=== PATIENT | male | born 1965 | race Caucasian/White ===

== ENCOUNTER 2020-04-30 14:29 | Emergency (ER) | payer BC ==
--- NOTE | 2020-04-30 15:01 | EDM.PDOC ---
ED HPI GENERAL MEDICAL PROBLEM - General Chief Complaint: Skin Complaint Stated Complaint: WOOD TICK BITE/? LYMES DISEASE Time Seen by Provider: 04/30/20 14:58 Source of Information: Reports: Patient History Limitations: Reports: No Limitations - History of Present Illness INITIAL COMMENTS - FREE TEXT/NARRATIVE: Patient comes emergency department today with complaints of concerns of Lyme's disease from a tick bite. 6 days ago the patient removed a tick that was embedded into his skin on the right posterior distal thigh. Today when he looked at it there was some swelling around it and his family thought it was Lyme's disease. He has had no fever no chills. No headache no visual disturbances. No paresthesias. No neck pain. No chest pain or shortness of breath or difficulty breathing. Really asymptomatic otherwise. He is outside working in the [employer] all the time and has ticks on him regularly. He denies any arthralgias myalgias or paresthesias. He denies any other rash. - Related Data Allergies Allergy/AdvReac Type Severity Reaction Status Date / Time bee venom protein (honey bee) Allergy Anaphylactic Verified 04/30/20 14:47 Shock Home Meds: Home Meds Rivaroxaban [Xarelto] 20 mg PO DAILY 04/30/20 [History] Past Medical History Cardiovascular History: Reports: Blood Clots/VTE/DVT, Other (See Below) Respiratory History: Reports: PE Endocrine/Metabolic History: Reports: Obesity/BMI 30+ - Past Surgical History HEENT Surgical History: Reports: Adenoidectomy, Tonsillectomy Musculoskeletal Surgical History: Reports: Arthroscopic Knee Social & Family History - Tobacco Use Smoking Status *Q: Never Smoker Second Hand Smoke Exposure: No - Caffeine Use Caffeine Use: Reports: None - Recreational Drug Use Recreational Drug Use: No ED ROS GENERAL - Review of Systems Review Of Systems: Comprehensive ROS is negative, except as noted in HPI. ED EXAM, SKIN/RASH Exam: See Below Text/Narrative:: Actually while doing the patient's physical exam I found 2 other tics that were crawling on his buttocks. These were discarded they were not implanted. Exam Limited By: No Limitations General Appearance: Alert, WD/WN, No Apparent Distress Ears: Normal External Exam Nose: Normal Inspection Throat/Mouth: Normal Inspection, Normal Lips, Normal Teeth, Normal Voice Head: Atraumatic, Normocephalic Neck: Normal Inspection, Supple, Non-Tender, Full Range of Motion Respiratory/Chest: No Respiratory Distress, Lungs Clear, Normal Breath Sounds, No Accessory Muscle Use, Chest Non-Tender Cardiovascular: Normal Peripheral Pulses, Regular Rate, Rhythm, No Edema, No Gallop, No JVD, No Murmur, No Rub GI/Abdominal: Normal Bowel Sounds, Soft, Non-Tender (Male) Exam: Deferred Rectal (Males) Exam: Deferred Back Exam: Normal Inspection, Full Range of Motion, NT Extremities: Normal Inspection, Normal Range of Motion, Non-Tender, No Pedal Edema, Normal Capillary Refill Neurological: Alert, Oriented, CN II-XII Intact, Normal Cognition Psychiatric: Normal Affect, Normal Mood Skin: Warm, Dry, Intact, Normal Color Location, Skin: Other (A very thorough head to toe skin exam was completed by myself. I did not find any target bull's-eye lesions consistent with traditional Lyme's disease presentation. I even look throughout the hair. On the right posterior distal lateral aspect of the thigh there is about a $0.50 piece area of erythema with a central ulceration. This erythema is minimally swollen and tender. Small amount of warmth. There is no exudate or discharge. Central crusting in the central region of this.) Lymphatic: No Adenopathy Course - Vital Signs Last Recorded V/S: Last Vital Signs Temp 98.3 F 04/30/20 14:44 Pulse 91 04/30/20 14:44 Resp 20 04/30/20 14:44 BP 147/66 H 04/30/20 14:44 Pulse Ox 96 04/30/20 14:44 - Re-Assessments/Exams Free Text/Narrative Re-Assessment/Exam: 04/30/20 15:13 Start him on Keflex due to the concerns for an infection at the isolated tick bite on the right posterior of his leg. I will also draw some blood to make sure that screen him for Lyme's disease is almost been a week so if it is positive we should get a good reading. We will do some screening labs he is comfortable with this plan his questions are answered. Departure - Departure Time of Disposition: 15:06 Disposition: Home, Self-Care 01 Clinical Impression: Insect bite, infected Qualifiers: Encounter type: initial encounter Qualified Code(s): W57.XXXA - Bitten or stung by nonvenomous insect and other nonvenomous arthropods, initial encounter - Discharge Information Instructions: Insect Bite, Adult, [id number] Forms: ED Department Discharge Additional Instructions: Tylenol as needed for pain. We will let you know your Lymes test when it gets back in about a week. Cephalexin 1 capsule 4 times a day for the next 7 days. RX given to the patient. Warm packs to the area. Return to the ED if new or worsening symptoms. Sepsis Event Note (ED) - Evaluation Sepsis Screening Result: No Definite Risk - Focused Exam Vital Signs: Vital Signs Temp Pulse Resp BP Pulse Ox 04/30/20 14:44 98.3 F 91 20 147/66 H 96 - Assessment/Plan Assessment:: Infected tick bite to the right posterior distal thigh. Screening for lymes. No typical rash identified. no systemic complaints. Plan: Tylenol as needed for pain. We will let you know your Lymes test when it gets back in about a week. Cephalexin 1 capsule 4 times a day for the next 7 days. RX given to the patient. Warm packs to the area. Return to the ED if new or worsening symptoms.
[2020-04-30 15:35] LABS: ANION GAP 11.2 mEq/L (7-13)
== END 2020-04-30 15:19 | disposition home or self-care (01) ==
LOC: DL.ED 14:29
DX: S70.361A Insect bite (nonvenomous), right thigh, initial encounter (principal); L08.9 Local infection of the skin and subcutaneous tissue, unspecified; E66.9 Obesity, unspecified; Z68.42 Body mass index [BMI] 45.0-49.9, adult; Z86.718 Personal history of other venous thrombosis and embolism; Z86.711 Personal history of pulmonary embolism; Z91.030 Bee allergy status; Z79.01 Long term (current) use of anticoagulants; W57.XXXA Bitten or stung by nonvenomous insect and other nonvenomous arthropods, initial encounter
CPT/HCPCS: 80048; 85025; 86617; 99282